=== PATIENT | female | born 1960 | race Caucasian/White ===

== ENCOUNTER 2019-03-18 18:03 | Emergency (ER) | payer BC, OTHER ==
--- NOTE | 2019-03-18 18:18 | ED ---
HPI Chest Pain - HPI Summary HPI Summary: The patient is a 58 y/o F arriving by ambulance to [facility] from [facility] with a chief complaint of gradual worsening mid-sternal chest pain since . She reports that the pain has been increasing, although she thought that the pain was indigestion at first, but now it is radiating into the jaw. The chest pain is described as a pressure. She additionally c/o mild shortness of breath. Currently, her symptoms are rated 0/10 in severity. At [place], the patient states she was given ASA but not NTG. She had a Chest CT done but not an x-ray. She denies any history of HTN, DM, or HLD. PMHx: none. FHx: cardiac disease. Nonsmoker, no EtOH, no substance use. Medications reviewed. Allergies noted. - History of Current Complaint Hx Obtained From: Patient Onset/Duration: Started Days Ago - three, Still Present Timing: Lasting Days Initial Severity: Mild Current Severity: Moderate Pain Intensity: 0 Pain Scale Used: 0-10 Numeric Chest Pain Location: Mid Sternal Chest Pain Radiates: Yes Chest Pain Radiates To:: Jaw Character: Pressure/Squeezing Aggravating Factor(s): Nothing Alleviating Factor(s): Nothing Associated Signs and Symptoms: Positive: Chest Pain, Shortness of Breath - Allergy/Home Medications Allergies/Adverse Reactions: Allergies Allergy/AdvReac Type Severity Reaction Status Date / Time No Known Allergies Allergy Verified 03/18/19 18:17 Home Medications: Home Medications Levothyroxine TAB* [Synthroid TAB*] 25 mcg PO DAILY 03/18/19 [History Confirmed 03/18/19] PMH/Surg Hx/FS Hx/Imm Hx Endocrine/Hematology History: Denies: Hx Diabetes Cardiovascular History: Denies: Hx Hypercholesterolemia, Hx Hypertension Sensory History: Reports: Hx Contacts or Glasses Opthamlomology History: Reports: Hx Contacts or Glasses - Surgical History Surgical History: None Surgery Procedure, Year, and Place: none - Family History Known Family History: Positive: Cardiac Disease Negative: Diabetes - Social History Alcohol Use: None Hx Substance Use: No Substance Use Type: Reports: None Hx Tobacco Use: No Smoking Status (MU): Never Smoked Tobacco Review of Systems Positive: Chest Pain - mid-sternal radiating into jaw Positive: Shortness Of Breath All Other Systems Reviewed And Are Negative: Yes Physical Exam - Summary Physical Exam Summary: VITAL SIGNS: Reviewed. GENERAL: Patient is a well-developed and nourished female who is lying comfortable in the stretcher. Patient is not in any acute respiratory distress. HEAD AND FACE: No signs of trauma. No ecchymosis, hematomas or skull depressions. No sinus tenderness. EYES: PERRLA, EOMI x 2, No injected conjunctiva, no nystagmus. EARS: Hearing grossly intact. Ear canals and tympanic membranes are within normal limits. MOUTH: Oropharynx within normal limits. NECK: Supple, trachea is midline, no adenopathy, no JVD, no carotid bruit, no c- spine tenderness, neck with full ROM. CHEST: Symmetric, no tenderness at palpation. LUNGS: Clear to auscultation bilaterally. No wheezing or crackles. CVS: Regular rate and rhythm, S1 and S2 present, no murmurs or gallops appreciated. ABDOMEN: Soft, non-tender. No signs of distention. No rebound, no guarding, and no masses palpated. Bowel sounds are normal. EXTREMITIES: FROM in all major joints, no edema, no cyanosis or clubbing. NEURO: Alert and oriented x 3. No acute neurological deficits. Speech is normal and follows commands. SKIN: Dry and warm. Triage Information Reviewed: Yes Vital Signs Reviewed: Yes Procedures - Sedation Patient Received Moderate/Deep Sedation with Procedure: No Diagnostics - Laboratory Result Diagrams: 03/18/19 18:22 03/18/19 18:22 Lab Statement: Any lab studies that have been ordered have been reviewed, and results considered in the medical decision making process. - CT Chest/Abd/Pel CTA CT Interpretation Completed By: Radiologist Summary of CT Findings: No thoracic aneurysm. No aortic dissection. No pulmonary embolism. No focal infiltrates. No pleural effusion. No cardiomegaly. No pericardial effusion. ED physician has reviewed this report. (taken at [facility]) Chest/Abd CT CT Interpretation Completed By: Radiologist Summary of CT Findings: No abdominal aneurysm or abdominal dissection. No small bowel movement. Diverticulosis without diverticulitis. Normal appendix. ED physician has reviewed this report. (taken at [facility]) - EKG 1921 Cardiac Rate: NL - 69 bpm EKG Rhythm: Sinus Rhythm Summary of EKG Findings: EKG at 1922 reveals NSR at [address] elevations. ED physician has reviewed and interpreted this EKG. Re-Evaluation - Re-Evaluation First Eval Re-Evaluation Time: 21:15 Change: Improved Comment: She is not experiencing any chest pain. We discussed all results and plan for discharge. Chest Pain Course/Dx - Course Assessment/Plan: Patient is a 58 y/o F arriving by ambulance from [facility] with a chief complaint of mid-sternal chest pressure radiating into the jaw onset three days ago with graudal worsening. The patient had 2 troponins at [facility] 4 hours apart (1130 and 1701) which were 0.00. The patient also had a Chest/Abd/Thorax CTA which was negative. However, the patient was sent to the [facility] for further workup. At arrival, the patient reports that the patient had chest pains on Monday, and since then the patient is having intermittent chest pains. She reports that the chest pain is sharp and is associated with exertion. In the ED course, on arrival patient reports no chest pain, no shortness of breath, no dizziness. Patient was given aspirin and [facility] but no nitroglycerin. Patient denies any history of hypertension, diabetes or dyslipidemia. Patient has no comorbidities. Blood test results without any significant abnormality. Two troponins 3 hours apart 0.00. EKG is a normal sinus rhythm without any ST elevation. Chest x-ray done at [facility] was negative. Heart to score is equal to 1 to follow suspicion for acute coronary syndrome. Patient reports that all symptoms have resolved. Because the patient has no significant comorbidities and no family history of cardiovascular disease at his age the patient will be discharged home with follow up of PMD. I discussed all the findings and test results with the patient. Patient was instructed to return to the emergency room immediately if any of the symptoms return or worsen. Patient understands and agrees. Plan of care was discussed with the patient and patient understands and agrees. All questions were answered at patient satisfaction. There were no further complaints or concerns. PE before discharge: CVS: S1 and S2 present. No murmurs appreciated. Abdominal exam before discharge: Soft, non-tender. No signs of distention. No rebound, no guarding, and no masses palpated. Bowel sounds are normal. Patient is alert and oriented x 3. Patient is hemodynamically stable. - Diagnoses Provider Diagnoses: Atypical chest pain Discharge ED - Sign-Out/Discharge Documenting (check all that apply): Patient Departure - Patient will be discharged home. - Discharge Plan Condition: Stable Disposition: HOME Patient Education Materials: Chest Pain (DC) Referrals: [facility] [Outside] - 3 Days Additional Instructions: Follow up with your primary care provider in 2-3 days. Return to the emergency department for any new or worsening symptoms. - Billing Disposition and Condition Condition: STABLE Disposition: Home - Attestation Statements Document Initiated by Figueroaiblisset: Yes Documenting Scribe: Verónica Jackson Provider For Whom Nikky is Documenting (Include Credential): Dr. Joshua Rai MD Scribe Attestation: Verónica Barraza scribed for Dr. Joshua Rai MD on 03/19/19 at 1850. Scribe Documentation Reviewed: Yes Provider Attestation: The documentation as recorded by the Verónica leung accurately reflects the service I personally performed and the decisions made by me, Dr. Joshua Rai MD Status of Scribe Document: Viewed
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
[2019-03-18 18:37] LABS: ABS Basophils 0.1 10^3/ul (0-0.2); ABS Eosinophils 0.1 10^3/ul (0-0.6); ABS Monocytes 0.7 10^3/ul (0-0.8); ABS Neutrophils 5.4 10^3/ul (1.5-7.7); Hematocrit 43 % (35-47); Hemoglobin 14.9 g/dL (12.0-16.0); Lymphocyte % 24.3 %; Mean Corpuscular HGB Conc 35 g/dL (31-36); Mean Corpuscular Hemoglobin 30 pg (27-31); Mean Corpuscular Volume 86 fL (80-97); Mean Platelet Volume 8.1 fL (7.4-10.4); Platelet Count 283 10^3/uL (150-450); Red Blood Count 4.96 10^6 /uL (3.70-4.87); Red Cell Distribution Width 14 % (10-15); White Blood Count 8.3 10^3/uL (3.5-10.8)
[2019-03-18 18:56] LABS: Albumin 4.1 g/dL (3.2-5.2); Albumin/Globulin Ratio 1.4 (1-3); BUN/Creatinine Ratio 14.3 (8-20); Calcium 9.5 mg/dL (8.6-10.3); EGFR African American 103.3 (>60); EGFR Non-African American 85.4 (>60); Potassium 3.9 mmol/L (3.5-5.0); Total Bilirubin 0.4 mg/dL (0.2-1.0); Total Protein 7.1 g/dL (6.4-8.9)
[2019-03-18 19:00] LABS: CKMB ng/mL 1.2 ng/mL (0.6-6.3)
[2019-03-18 21:55] VITALS: BP 130/77
== END 2019-03-18 22:01 | disposition home or self-care (01) ==
LOC: ED 18:03
DX: R07.89 Other chest pain (principal); Z79.890 Hormone replacement therapy
CPT/HCPCS: 36415; 80053; 82550; 82553; 83605; 83735; 83880; 84484; 85025; 93005; 99284